=== PATIENT | male | born 1995 | race Caucasian/White ===

== ENCOUNTER 2017-09-29 12:37 | Emergency (ER) | payer BC ==
[~2017-09-29] VITALS: Ht 182.9 cm; Wt 79.5 kg
[2017-09-29] MEDS ORDERED: PERCOCET 5/31 TABLET PO (13:21)
[2017-09-29 14:00] VITALS: BP 139/80
== END 2017-09-29 14:30 | disposition home or self-care (01) ==
LOC: EME 12:37
DX: S42.031A Displaced fracture of lateral end of right clavicle, initial encounter for closed fracture (principal); V00.311A Fall from snowboard, initial encounter; Y93.23 Activity, snow (alpine) (downhill) skiing, snowboarding, sledding, tobogganing and snow tubing
CPT/HCPCS: 73000; 73030; 99281; 99283